=== PATIENT | female | born 1965 | race Caucasian/White ===

== ENCOUNTER 2018-01-06 03:55 | Inpatient (IN) ==
[2018-01-06] MEDS ORDERED: 0.9 % Sodium Chloride 1,000 ML IVC ONE (04:25)
[2018-01-06] MEDS ORDERED: Isovue-370 500 ML INFUS..BTL IV ONE (04:25)
--- NOTE | 2018-01-06 04:29 | Emergency Department Note ---
Disposition Clinical Impression: Hypokalemia, Hx of Crohn's disease Leukocytosis Qualifiers: Leukocytosis type: unspecified Qualified Code(s): D72.829 - Elevated white blood cell count, unspecified Nausea and vomiting Qualifiers: Vomiting type: unspecified Vomiting Intractability: non-intractable Qualified Code(s): R11.2 - Nausea with vomiting, unspecified Disposition: Admitted As Inpatient Condition: Fair Time of Disposition: 06:31 General Adult HPI - General Chief complaint: ED Abdominal Pain Stated complaint: Fever, abdominal pain, n/v/d Time Seen by Provider: 01/06/18 04:06 Source: patient Mode of arrival: ambulatory Limitations: no limitations Nursing Notes Reviewed: Yes Vital Signs Reviewed: Yes - History of Present Illness HPI Narrative: Patient is a 52-year-old female that presents the emergency department for cough fever congestion and abdominal pain. Patient states that she has a history of Crohn's and is had abdominal pain for the past 5-6 days. She states that she was seen as an outpatient by her primary care provider and was told that she should go to the emergency department. States that she went and was seen at [facility] approximately 5 days ago and nothing was able to be found. She states that things have been progressively been getting worse. Patient states that she has been having episodes of vomiting, fever as high as 103 and diarrhea. Patient also states that she has had generalized body aches. Pain Scale: 8 - Related Data Allergies Allergy/AdvReac Type Severity Reaction Status Date / Time acetaminophen [From Percocet] Allergy See Verified 01/06/18 03:56 Comments infliximab [From Remicade] Allergy See Verified 01/06/18 03:56 Comments Oxycodone [From Percocet] Allergy See Verified 01/06/18 03:56 Comments All systems ED: reviewed and negative except as stated. Constitutional: Reports: fever, chills, weakness Cardiovascular: Denies: chest pain Respiratory: Reports: cough, dyspnea Gastrointestinal: Reports: abdominal pain, nausea, vomiting Genitourinary: Denies: urgency, dysuria, frequency Neurological: Denies: weakness, numbness, paresthesias Past Medical History - Past Medical History Medical history: Reports: hypertension Psychiatric history: Reports: no psych history - Social History Smoking Status: Current every day smoker Smokeless Tobacco Status: No Alcohol use: Reports: none Drug use: Reports: none Physical Exam - General Limitations: no limitations General appearance: alert, in no apparent distress - Head Head exam: atraumatic, normocephalic - Eye Eye exam: Present: normal appearance, EOMI - Neck Neck exam: Present: normal inspection, full ROM, trachea midline - Respiratory Respiratory exam: Present: normal lung sounds bilaterally. Absent: respiratory distress, wheezes - Cardiovascular Cardiovascular exam: Present: regular rate, normal rhythm, normal heart sounds, +S1, +S2 - Abdominal Exam Abdominal exam: Present: soft, tenderness, normal bowel sounds Abdominal tenderness: Present: epigastrium - Neurological Exam Neurological exam: Present: alert, oriented X3 - Psychiatric Psychiatric exam: Present: normal affect, normal mood - Skin Skin exam: Present: warm, dry, intact Course Vital Signs Temperature 98.4 F 01/06/18 03:57 Pulse Rate 103 01/06/18 03:57 Respiratory Rate 20 01/06/18 03:57 Blood Pressure 132/70 01/06/18 03:57 O2 Sat by Pulse Oximetry 94 01/06/18 03:57 Temperature 98.4 F 01/06/18 03:57 Pulse Rate 103 01/06/18 03:57 Respiratory Rate 20 01/06/18 03:57 Blood Pressure 132/70 01/06/18 03:57 O2 Sat by Pulse Oximetry 94 01/06/18 03:57 Oxygen Delivery Oxygen Delivery Room Air Medical Decision Making - [facility] Narrative Medical decision making narrative: Due to the patient presenting to the emergency department with abdominal pain and cough we will obtain basic laboratory tests include CBC, BMP, hepatic panel , lipase, urinalysis and a CT scan of the abdomen and pelvis with IV contrast and a chest x-ray. Patient will also be given a liter of IV fluids here in the emergency department. Chest x-ray showed no acute cardial ulnar process. CT scan did not show any acute findings. Patient did have a hypokalemia of 2.6. Due to the patient vomiting we will not give any oral potassium but we will give 40 of IV potassium. Patient has an elevated white count of 18.4. The remainder laboratory testing was relatively unremarkable. Due to the patient having a hypokalemia, nausea vomiting and diarrhea feel that it is necessary for the patient be admitted to the hospital for further evaluation and management. Called and spoke with the and admitting hospitalist Dr Koroma and he has accepted the patient to their service. The patient will be admitted to the hospital at this time for further evaluation and management. - Lab Data Lab results reviewed: Yes I reviewed the patient's lab results. - Radiology Data Radiology results reviewed: Yes I reviewed the patient's radiology results. Abdomen/Pelvis CT 01/06/18 04:25 IMPRESSION: No acute process identified. D/ / Tomy Walter MD / Tomy Walter MD Interpreting Provider: Tomy Walter MD Chest X-Ray 01/06/18 04:31 IMPRESSION: No acute cardiopulmonary abnormality. D/ / Willie Benz MD / Willie Benz MD Interpreting Provider: Willie Benz MD - EKG Data EKG #1 EKG attestation: Yes I reviewed and interpreted this EKG. EKG results narrative: EKG shows a sinus rhythm at a rate of 83 bpm, MI interval of 171, QRS duration of 93, QTC of 405 with a normal axis. There is no STEMI noted on EKG.
[2018-01-06] MEDS ORDERED: Ondansetron 4 MG/2 ML VIAL IVP ONE (04:32)
[2018-01-06 04:59] LABS: Basophils # 0.1 K/mcL (0.0-0.2); Basophils % 0.6 %; Eosinophils # 0.1 K/mcL (0.0-0.6); Eosinophils % 0.3 %; Hemoglobin 12.4 g/dL (11.5-15.4); Immature Granulocytes % 0.7 % (0-4); Lymphocytes # 1.8 K/mcL (0.6-4.6); Lymphocytes % 9.7 %; Mean Corpuscular HGB Conc 36.5 g/dL (31.6-35.5); Mean Corpuscular Hemoglobin 31.6 pg (28.0-33.3); Mean Corpuscular Volume 86.7 fL (83.0-100.0); Mean Platelet Volume 9.5 fL (9.4-12.4); Monocytes # 1.3 K/mcL (0.0-1.3); Monocytes % 7.1 %; Nucleated Red Blood Cells 0.1 /100 WBC (0); Platelet Count 283 K/mcL (140-400); Red Blood Count 3.92 M/mcL (3.82-4.97); Red Cell Distribution Width 11.8 % (11.5-14.5); Segmented Neutrophils % 81.6 %
[2018-01-06 05:30] LABS: Alanine Aminotransferase 33 Units/L (7-52); Albumin/Globulin Ratio 1.2 (1.1-2.2); Alkaline Phosphatase 190 Units/L (34-104); Aspartate Amino Transferase 27 Units/L (13-39); BUN/Creatinine Ratio 12 (6-26); Bilirubin,Direct 0.1 mg/dL (0.0-0.2); Bilirubin,Indirect 0.5 mg/dL (0.0-1.2); Bilirubin,Total 0.6 mg/dL (0.3-1.0); Blood Urea Nitrogen 10 mg/dL (6-20); Calcium 9.3 mg/dL (8.6-10.3); Carbon Dioxide 26 mEq/L (23-29); Chloride 95 mEq/L (98-107); Globulin 3.3 g/dL (2.4-3.5); Glucose 136 mg/dL (70-105); Lipase 15 Units/L (11-82); Osmolality,Calculated 275 (280-300); Potassium 2.6 mEq/L (3.5-5.1); Sodium 132 mEq/L (136-145); Total Protein 7.3 g/dL (6.4-8.9); eGFR For African Americans > 60 (> 60); eGFR For Non-African Americans > 60 (> 60)
[2018-01-06] MEDS ORDERED: *HR* FentaNYL (PF) 100 MCG/2 ML VIAL IVP ONE (05:58)
[2018-01-06] MEDS ORDERED: *HR* Promethazine 25 MG/ML VIAL IVP ONE (06:19)
[2018-01-06 06:25] LABS: Bilirubin,Urine Negative (Negative); Blood,Urine Small (Negative); Clarity,Urine Clear (Clear); Color,Urine Yellow (Yellow); Glucose,Urine (UA) Normal (Normal); Ketones,Urine Negative (Negative); Leukocyte Esterase,Urine Negative (Negative); Nitrite,Urine Negative (Negative); PH,Urine 6.5 pH Units (5.0-8.0); Protein,Urine Negative (Neg-Trace); Specific Gravity,Urine 1.015 (1.010-1.025); Urobilinogen,Urine Normal (Normal)
[2018-01-06 06:26] LABS: Bacteria,Urine None Seen per hpf (None-Few); Hyaline Casts,Urine None Seen per lpf (None-Few); Squamous Epithelial Cell,Urine Many per lpf (None-Few); WBC,Urine 0-3 per hpf (0-3)
--- NOTE | 2018-01-06 07:20 | Emergency Department Note ---
Disposition Clinical Impression: Hypokalemia, Hx of Crohn's disease Leukocytosis Qualifiers: Leukocytosis type: unspecified Qualified Code(s): D72.829 - Elevated white blood cell count, unspecified Nausea and vomiting Qualifiers: Vomiting type: unspecified Vomiting Intractability: non-intractable Qualified Code(s): R11.2 - Nausea with vomiting, unspecified Disposition: Admitted As Inpatient Condition: Fair General Adult HPI - General Chief complaint: ED Abdominal Pain Stated complaint: Fever, abdominal pain, n/v/d Time Seen by Provider: 01/06/18 04:06 Source: patient Mode of arrival: ambulatory Limitations: no limitations Nursing Notes Reviewed: Yes Vital Signs Reviewed: Yes - History of Present Illness Pain Scale: 8 - Related Data Allergies Allergy/AdvReac Type Severity Reaction Status Date / Time acetaminophen [From Percocet] Allergy See Verified 01/06/18 03:56 Comments infliximab [From Remicade] Allergy See Verified 01/06/18 03:56 Comments Oxycodone [From Percocet] Allergy See Verified 01/06/18 03:56 Comments Constitutional: Reports: fever, chills, weakness Cardiovascular: Denies: chest pain Respiratory: Reports: cough, dyspnea Gastrointestinal: Reports: abdominal pain, nausea, vomiting Genitourinary: Denies: urgency, dysuria, frequency Neurological: Denies: weakness, numbness, paresthesias Past Medical History - Past Medical History Medical history: Reports: hypertension Psychiatric history: Reports: no psych history - Social History Smoking Status: Current every day smoker Smokeless Tobacco Status: No Alcohol use: Reports: none Drug use: Reports: none Physical Exam - General Limitations: no limitations General appearance: alert, in no apparent distress Course Vital Signs Temperature 98.4 F 01/06/18 03:57 Pulse Rate 103 01/06/18 03:57 Respiratory Rate 20 01/06/18 03:57 Blood Pressure 132/70 01/06/18 03:57 O2 Sat by Pulse Oximetry 94 01/06/18 03:57 Temperature 98.4 F 01/06/18 03:57 Pulse Rate 103 01/06/18 03:57 Respiratory Rate 20 01/06/18 03:57 Blood Pressure 132/70 01/06/18 03:57 O2 Sat by Pulse Oximetry 94 01/06/18 03:57 Oxygen Delivery Oxygen Delivery Room Air Medical Decision Making - Lab Data Result diagrams: 01/06/18 04:52 01/06/18 04:52 Lab Results 01/06/18 01/06/18 01/06/18 Range/Units 04:52 04:52 05:34 WBC 18.4 H (4.3-11.1) K/mcL RBC 3.92 (3.82-4.97) M/mcL Hgb 12.4 (11.5-15.4) g/dL Hct 34.0 L (35.3-44.9) % MCV 86.7 (83.0-100.0) fL MCH 31.6 (28.0-33.3) pg MCHC 36.5 H (31.6-35.5) g/dL RDW 11.8 (11.5-14.5) % Plt Count 283 (140-400) K/mcL MPV 9.5 (9.4-12.4) fL Immature Gran % 0.7 (0-4) % Seg Neutrophils % 81.6 % Lymphocytes % 9.7 % Monocytes % 7.1 % Eosinophils % 0.3 % Basophils % 0.6 % Neutrophils # 15.0 H (1.6-8.9) K/mcL Lymphocytes # 1.8 (0.6-4.6) K/mcL Monocytes # 1.3 (0.0-1.3) K/mcL Eosinophils # 0.1 (0.0-0.6) K/mcL Basophils # 0.1 (0.0-0.2) K/mcL Nucleated RBCs/100 WBC 0.1 H (0) /100 WBC Sodium 132 L (136-145) mEq/L Potassium 2.6 L (3.5-5.1) mEq/L Chloride 95 L (98-107) mEq/L Carbon Dioxide 26 (23-29) mEq/L BUN 10 (6-20) mg/dL Creatinine 0.86 (0.60-1.20) mg/dL Est GFR ( Amer) > 60 (> 60) Est GFR (Non-Af Amer) > 60 (> 60) BUN/Creatinine Ratio 12 (6-26) Glucose 136 H (70-105) mg/dL Calculated Osmolality 275 L (280-300) Calcium 9.3 (8.6-10.3) mg/dL Total Bilirubin 0.6 (0.3-1.0) mg/dL Direct Bilirubin 0.1 (0.0-0.2) mg/dL Indirect Bilirubin 0.5 (0.0-1.2) mg/dL AST 27 (13-39) Units/L ALT 33 (7-52) Units/L Alkaline Phosphatase 190 H (34-104) Units/L Serum Total Protein 7.3 (6.4-8.9) g/dL Albumin 4.0 (3.5-5.7) g/dL Globulin 3.3 (2.4-3.5) g/dL Albumin/Globulin Ratio 1.2 (1.1-2.2) Lipase 15 (11-82) Units/L Urine Color TNP Urine Clarity TNP Urine pH TNP Ur Specific [place] TNP Urine Protein TNP Urine Glucose (UA) TNP Urine Ketones TNP Urine Blood TNP Urine Nitrite TNP Urine Bilirubin TNP Urine Urobilinogen TNP Ur Leukocyte Esterase TNP Urine Microscopic RBC TNP Urine Microscopic WBC TNP Ur Squamous Epith Cells TNP Urine Bacteria TNP Hyaline Casts TNP Ur Culture Indicated? TNP Specimen Rejected 01/06/18 01/06/18 Range/Units 05:34 06:09 WBC (4.3-11.1) K/mcL RBC (3.82-4.97) M/mcL Hgb (11.5-15.4) g/dL Hct (35.3-44.9) % MCV (83.0-100.0) fL MCH (28.0-33.3) pg MCHC (31.6-35.5) g/dL RDW (11.5-14.5) % Plt Count (140-400) K/mcL MPV (9.4-12.4) fL Immature Gran % (0-4) % Seg Neutrophils % % Lymphocytes % % Monocytes % % Eosinophils % % Basophils % % Neutrophils # (1.6-8.9) K/mcL Lymphocytes # (0.6-4.6) K/mcL Monocytes # (0.0-1.3) K/mcL Eosinophils # (0.0-0.6) K/mcL Basophils # (0.0-0.2) K/mcL Nucleated RBCs/100 WBC (0) /100 WBC Sodium (136-145) mEq/L Potassium (3.5-5.1) mEq/L Chloride (98-107) mEq/L Carbon Dioxide (23-29) mEq/L BUN (6-20) mg/dL Creatinine (0.60-1.20) mg/dL Est GFR ( Amer) (> 60) Est GFR (Non-Af Amer) (> 60) BUN/Creatinine Ratio (6-26) Glucose (70-105) mg/dL Calculated Osmolality (280-300) Calcium (8.6-10.3) mg/dL Total Bilirubin (0.3-1.0) mg/dL Direct Bilirubin (0.0-0.2) mg/dL Indirect Bilirubin (0.0-1.2) mg/dL AST (13-39) Units/L ALT (7-52) Units/L Alkaline Phosphatase (34-104) Units/L Serum Total Protein (6.4-8.9) g/dL Albumin (3.5-5.7) g/dL Globulin (2.4-3.5) g/dL Albumin/Globulin Ratio (1.1-2.2) Lipase (11-82) Units/L Urine Color Yellow Urine Clarity Clear Urine pH 6.5 Ur Specific [place] 1.015 Urine Protein Negative Urine Glucose (UA) Normal Urine Ketones Negative Urine Blood Small H Urine Nitrite Negative Urine Bilirubin Negative Urine Urobilinogen Normal Ur Leukocyte Esterase Negative Urine Microscopic RBC 5-15 H Urine Microscopic WBC 0-3 Ur Squamous Epith Cells Many H Urine Bacteria None Seen Hyaline Casts None Seen Ur Culture Indicated? NO Specimen Rejected Labelling Attestation Statement - Attestation Attestation: I, Tc Carlisle MD, personally evaluated this patient and discussed their management with the resident physician. I reviewed the resident's note and agree with the documented findings, medical decision making, and plan of care. 52-year-old female with history of Crohn's disease presents to the emergency department with a complaint of being ill for the past 5 or 6 days. She complains of sinus congestion and drainage with sore throat and cough. She also complains of nausea and vomiting and diarrhea. Crampy generalized abdominal pain. No melena, hematemesis, or hematochezia. There has been fever and chills and body aches. No urinary symptoms. On examination patient is a well-developed well-nourished female in no acute distress. She is alert and oriented 3. There is no cyanosis or diaphoresis. Breath sounds are clear and equal bilaterally. Heart regular rate and rhythm. Abdomen is soft with mild to moderate diffuse tenderness on direct palpation. Normal bowel sounds. No guarding or rebound tenderness. Labs reviewed. WBC 18.4 with 81.6% segs. Potassium 2.6. Chest x-ray negative. CT the abdomen and pelvis negative. EKG shows a normal sinus rhythm with ventricular rate of 83. Nonspecific ST and T-wave changes. No ectopy or arrhythmia. The hospitalist, Dr. Koroma, was consulted and accepted admission of the patient.
--- NOTE | 2018-01-06 07:50 | Internal Med History&Physical ---
Date of Encounter: 01/06/18 Time of Encounter: 07:50 Internal Medicine - H&P: HPI Admitted From: Home Plans for Post Hospital Care: Home History of present illness: Ms. Feldman is a 52 year old female who has history of Crohn's disease, hypertension presenting emergency room for 5 days of fever cough headache abdominal pain. Patient stated that she started to have fever chills headache and a sore throat 5 days ago, then noses become congested, has some productive cough and chest congestion. Denies chest pain he she had a fever at home but emergency room her temperature was normal. Also she has a history of Crohn's disease She also has abdominal pain at the same time, abdominal pain is diffuse, 9 out of 10 on and off , cramping is associated with severe diarrhea nausea and vomiting. The diarrhea is from 10-30 times a day no bloody stools. She feels very dehydrated and is concerning for Crohn's disease flareup. In the emergency room WBC 18.4 potassium 2.6 x-ray and chest x-ray was negative CT abdominal and a pelvis are negative, EKG shows normal sinus rhythm. Patient is going to be admitted for viral syndrome and viral gastroenteritis supportive care IV hydration Past Med Surg Social Fam HX - Past Medical History Medical history: hypertension Psychiatric history: no psych history - Social History Smoking Status: Current every day smoker Smokeless Tobacco Status: No Alcohol use: none Drug use: none Internal Medicine - H&P: Meds 3 Allergy/AdvReac Type Severity Reaction Status Date / Time acetaminophen [From Percocet] Allergy See Verified 01/06/18 03:56 Comments infliximab [From Remicade] Allergy See Verified 01/06/18 03:56 Comments Oxycodone [From Percocet] Allergy See Verified 01/06/18 03:56 Comments All Systems PM: A 10-system review of systems was performed and is negative for pertinent findings except as documented above in the HPI. - Constitutional Vitals: Temp Pulse Resp BP Pulse Ox 98.4 F 103 16 118/77 94 01/06/18 03:57 01/06/18 03:57 01/06/18 07:32 01/06/18 07:32 01/06/18 03:57 General appearance: Present: A&O X 3, pleasant, obese, answers questions appropriately Exam: CONSTITUTIONAL: Patient appears as an age appropriate female well developed, in no acute distress. EYES Clear sclerae, bilateral pupils are equal, reactive to light and accommodation. Extraocular movements are intact RESPIRATORY: No accessory muscle use, bilateral clear to auscultation, no wheezing, no crackles/rales. CARDIOVASCULAR: Regular heart rate, normal S1 and S2, no murmurs GASTROINTESTINAL: bowel sounds present, soft, no tenderness. No hepatosplenomegaly. No bilateral CVA tenderness MUSCULOSKELETAL: Joints in normal range of motion, no clubbing, no edema, no cyanosis. Bilateral peripheral pulses 2+ LYMPHATIC no lymphadenopathy in neck, groin and axilla bilaterally, no thyromegaly. NEUROLOGIC: CN II to XII are grossly intact, no focal neurological deficit. Deep tendon reflexes 2+ bilaterally. Normal light touch sensation to upper and lower extremity PSYCHIATRIC: Oriented x3, with good insight, mood is euthymic. No hallucinations or delusions. SKIN: Skin warm and dry, no rashes, no open wound. Internal Med - H&P Results - Labs CBC & Chem 7: 01/06/18 04:52 01/06/18 04:52 - Assessment and plan (1) Upper respiratory infection, viral Current Visit: Yes Status: Acute Assessment and plan: Patient has upper respiratory infection for 5 days, chest x-ray is negative for pneumonia. We will give Flonase supportive care (2) Leukocytosis Current Visit: Yes Status: Acute Assessment and plan: Negative UA and the chest x-ray, will follow-up with WBC Qualifiers: Leukocytosis type: unspecified Qualified Code(s): D72.829 - Elevated white blood cell count, unspecified (3) Nausea and vomiting Current Visit: Yes Status: Acute Assessment and plan: Possible acute viral gastroenteritis, will give Zofran and IV Phenergan IV Qualifiers: Vomiting type: unspecified Vomiting Intractability: non-intractable Qualified Code(s): R11.2 - Nausea with vomiting, unspecified (4) Hypokalemia Current Visit: Yes Status: Acute Assessment and plan: Place of IV and oral (5) Hx of Crohn's disease Current Visit: Yes Status: Acute Assessment and plan: History of Crohn's disease, was not on treatment, CT abdominal and the pelvis shows no acute process Patient has severe diarrhea will check stool C. difficile and a culture (6) Dehydration Current Visit: Yes Status: Acute Assessment and plan: will give IVF (7) Tobacco abuse Current Visit: Yes Status: Acute Assessment and plan: Patient is smokes a pack a day, smoking cessation discussed. We will provide a nicotine patch - Time Spent With Patient Total time spent is greater than 50% in coordination of care (as documented) at patient's floor/unit and/or counseling patient: Greater than 35 minutes
[2018-01-06] MEDS ORDERED: Naloxone 0.4 MG/ML INJ IVP PRN (08:09)
[2018-01-06] MEDS ORDERED: Acetaminophen 325 MG TABLET PO PRN (08:09)
[2018-01-06] MEDS ORDERED: Ondansetron 4 MG/2 ML VIAL IVP PRN (08:17)
[2018-01-06] MEDS: *HR* OxyCODONE Immed Rel 5 MG TABLET PO PRN ×2 (08:36→20:17)
[2018-01-06] MEDS: Ringers Solution, Lactated 1,000 ML IVC SCH ×2 (08:36→23:32)
[2018-01-06] MEDS: Fluticasone Propionate Nasal 50 MCG/SPRAY BOTTLE NS SCH (11:41)
[2018-01-06] MEDS: Nicotine 21 MG PATCH.TD24 TD SCH (11:41)
[2018-01-06] MEDS: Vancomycin Oral Soln 125 MG/2.5 ML UDC PO SCH ×2 (15:39→21:57)
[2018-01-06] MEDS ORDERED: GuaiFENesin/Dextromethorphan TABLET PO PRN (20:34)
[2018-01-07] MEDS ORDERED: GuaiFENesin/Codeine Oral Soln 5 ML UDC PO PRN (04:57)
[2018-01-07] MEDS ORDERED: Menthol 9.1 MG LOZENGE PO PRN (05:01)
[2018-01-07] MEDS ORDERED: *HR* LORazepam 2 MG/ML VIAL IVP ONE (05:26)
[2018-01-07] MEDS: GuaiFENesin/Dextromethorphan TABLET PO PRN (05:51)
[2018-01-07] MEDS: *HR* OxyCODONE Immed Rel 5 MG TABLET PO PRN ×2 (05:51→21:43)
[2018-01-07 06:03] LABS: Hematocrit 31.2 % (35.3-44.9); Mean Corpuscular HGB Conc 34.3 g/dL (31.6-35.5); Mean Corpuscular Hemoglobin 30.2 pg (28.0-33.3); Mean Corpuscular Volume 88.1 fL (83.0-100.0); Mean Platelet Volume 9.5 fL (9.4-12.4); Platelet Count 249 K/mcL (140-400); Red Blood Count 3.54 M/mcL (3.82-4.97); Red Cell Distribution Width 11.8 % (11.5-14.5)
[2018-01-07 06:05] LABS: Hemoglobin 10.7 g/dL (11.5-15.4)
[2018-01-07 06:25] LABS: BUN/Creatinine Ratio 10 (6-26); Blood Urea Nitrogen 7 mg/dL (6-20); Carbon Dioxide 23 mEq/L (23-29); Chloride 102 mEq/L (98-107); Glucose 125 mg/dL (70-105); Osmolality,Calculated 279 (280-300); Potassium 2.8 mEq/L (3.5-5.1); Sodium 135 mEq/L (136-145); eGFR For African Americans > 60 (> 60); eGFR For Non-African Americans > 60 (> 60)
[2018-01-07] MEDS ORDERED: Potassium Chloride 20 MEQ, Lidocaine 1% 2 ML in D5% in Water 250 ML IVPB ONE (08:09)
--- NOTE | 2018-01-07 08:11 | Internal Med Progress Note ---
<Eloy Sparrow - Last Filed: 01/07/18 10:56> Date of Encounter: 01/07/18 Time of Encounter: 08:11 - Assessment and plan (1) C. difficile colitis Current Visit: Yes Status: Acute Assessment and plan: Diarrhea improved overnight after starting antibiotics. Stool C.diff Tox B positive. Pending Stool culture Reviewed CT abd/pelvis and mild inflammation noted in colon. Continue with Vancomycin oral d2. -IV fluids 100mL/hr with potassium (2) Hypokalemia Current Visit: Yes Status: Acute Assessment and plan: Potassium 2.6 on arrival Currently 2.8 after completing 20mEq rider and 40mEq oral. Likely secondary to severe dehydration and diarrhea. Replace with 20mEq rider and additional 40mEq oral bid. Will continue to monitor labs. (3) Epigastric abdominal pain Current Visit: Yes Status: Acute Assessment and plan: Continues to have epigastric abdominal pain on exam; though not reported initially by patient. Discussed about heartburn/gerd symptoms, patient reports symptoms. -Start protonix. Continue monitoring abdominal exam. (4) Dehydration Current Visit: Yes Status: Acute Assessment and plan: Vitals stable, nontachycardic. No nausea or vomiting. Encourage oral hydration. (5) Upper respiratory infection, viral Current Visit: Yes Status: Acute Assessment and plan: Presents with nasal congestion and chest congestion. Tenderness over sinuses Likely viral etiology Continue with supportive care. Monitor vitals. Has been afebrile since arrival, though reported fevers up to 103F before arrival. -CT sinus ordered (6) Hx of Crohn's disease Current Visit: Yes Status: Acute Assessment and plan: Reported history of Crohns not on treatment. CT abd/pelvis revealed no acute process, but reviewed and looks like some colitis. Severe nonbloody diarrhea on arrival likely related to C.diff diarrhea without colitis, see plan in assessment above. Hb drop from 12.4 to 10.7 this morning. Most likely related to fluids; hemodilution vs secondary to c.diff colitis. Continue monitoring CBC. (7) Hypomagnesemia Current Visit: Yes Status: Acute Assessment and plan: Magnesium 1.4 Replete as needed. (8) Tobacco abuse Current Visit: Yes Status: Acute Assessment and plan: Continue with Nicotine replacement patch. (9) Sepsis Current Visit: Yes Status: Resolved Assessment and plan: Fevers to 103F prior to arrival otherwise afebrile since arrival, leukocytosis 18.4 on arrival, Tachycardic up to 111bpm, and C.diff colitis. -Continue per plan in assessment above -Vancomycin oral d2. Qualifiers: Sepsis type: sepsis due to unspecified organism Qualified Code(s): A41.9 - Sepsis, unspecified organism - Time Spent With Patient Total time spent is greater than 50% in coordination of care (as documented) at patient's floor/unit and/or counseling patient: - Subjective Interval history: Patient reports she still has nasal and chest congestion and hoarse voice, coughing up white mucus at times. Reports abdominal pain resolved and currently not having any diarrhea after starting antibiotics last evening; however on exam has mild epigastric tenderness with palpation. Patient denies fevers, chills, sweats, changes in vision, neck pain, chest pain, palpitations, shortness of breath, changes in bladder, dysuria, weakness, or loss of sensation. - Constitutional Vitals: Temp Pulse Resp BP Pulse Ox 99.2 F 90 15 152/63 92 01/07/18 06:35 01/07/18 06:35 01/07/18 06:35 01/07/18 06:35 01/07/18 06:35 General appearance: Present: A&O X 3, pleasant, no acute distress, obese, answers questions appropriately - Head Head exam: Present: atraumatic, normal inspection, normocephalic - Eye Eye exam: Present: EOMI, normal appearance - ENT ENT exam: Present: mucous membranes moist, normal exam, normal oropharynx - Neck Neck exam general surgery: Present: full ROM, normal inspection, supple, trachea midline. Absent: lymphadenopathy - Respiratory Respiratory exam: Present: CTAB. Absent: rales, respiratory distress, rhonchi, wheezes - Cardiovascular Cardiovascular exam: Present: RRR, +S1, +S2 - GI/Abdominal GI/Abdominal exam: Present: normal bowel sounds, soft, tenderness (mild epigastric). Absent: distended, no peritoneal signs - Extremities Exam Extremities exam: Present: full ROM, normal inspection, warm, radial pulses palpable and symmetrical. Absent: pedal edema, tenderness - Skin Skin exam: Present: dry, intact, normal color, warm Internal Medicine: Result - Labs CBC & Chem 7: 01/07/18 05:28 01/07/18 05:28 Labs: Short CBC 01/07/18 Range/Units 05:28 WBC 17.3 H (4.3-11.1) K/mcL Hgb 10.7 L D (11.5-15.4) g/dL Hct 31.2 L (35.3-44.9) % Plt Count 249 (140-400) K/mcL BMP 01/07/18 05:28 Sodium 135 L Potassium 2.8 L Chloride 102 Carbon Dioxide 23 BUN 7 Creatinine 0.71 Glucose 125 H Calcium 9.0 Consult Discharge Plan - Plan Referrals: Ale Ramsay MD [Primary Care Provider] - <Ankush Bey - Last Filed: 01/07/18 10:59> Date of Encounter: 01/07/18 - Assessment and plan (1) Hypokalemia Current Visit: Yes Status: Acute (2) Hx of Crohn's disease Current Visit: Yes Status: Acute (3) Upper respiratory infection, viral Current Visit: Yes Status: Acute (4) Dehydration Current Visit: Yes Status: Acute (5) Tobacco abuse Current Visit: Yes Status: Acute (6) Epigastric abdominal pain Current Visit: Yes Status: Acute (7) Hypomagnesemia Current Visit: Yes Status: Acute (8) C. difficile colitis Current Visit: Yes Status: Acute (9) Sepsis Current Visit: Yes Status: Resolved Qualifiers: Sepsis type: sepsis due to unspecified organism Qualified Code(s): A41.9 - Sepsis, unspecified organism - Time Spent With Patient Total time spent is greater than 50% in coordination of care (as documented) at patient's floor/unit and/or counseling patient: - Constitutional Vitals: Temp Pulse Resp BP Pulse Ox 99.2 F 90 15 152/63 92 01/07/18 06:35 01/07/18 06:35 01/07/18 06:35 01/07/18 06:35 01/07/18 06:35 Internal Medicine: Result - Labs CBC & Chem 7: 01/07/18 05:28 01/07/18 05:28 Labs: Short CBC 01/07/18 Range/Units 05:28 WBC 17.3 H (4.3-11.1) K/mcL Hgb 10.7 L D (11.5-15.4) g/dL Hct 31.2 L (35.3-44.9) % Plt Count 249 (140-400) K/mcL BMP 01/07/18 05:28 Sodium 135 L Potassium 2.8 L Chloride 102 Carbon Dioxide 23 BUN 7 Creatinine 0.71 Glucose 125 H Calcium 9.0 - Attending Attestation Severe dehydration and sepsis due to C. difficile colitis CT scan of the abdomen is reported as normal bothers mild inflammation in the right ascending colon and the rectal vault The patient has been having more than 30 bowel movements per day, very loose Continue oral vancomycin History of severe sinusitis for about a week next Order CT scan of the sinuses, we will try to avoid antibiotic therapy History of Crohn's not treated due to history of right possible kidney cancer that was removed Has not been on biological agents recently Hypokalemia, replete as needed, continue IV fluids with potassium I examined this patient and my medical decision-making was reviewed with the Resident Physician. I agree with the documented findings, disposition and treatment plan as described except to the extent set forth below.
[2018-01-07] MEDS ORDERED: Pantoprazole 40 MG VIAL IVP SCH (09:00)
[2018-01-07 09:20] LABS: Magnesium 1.4 mg/dL (1.6-2.6)
[2018-01-07] MEDS: Nicotine 21 MG PATCH.TD24 TD SCH (09:28)
[2018-01-07] MEDS: Vancomycin Oral Soln 125 MG/2.5 ML UDC PO SCH ×4 (10:14→21:45)
[2018-01-07] MEDS: Fluticasone Propionate Nasal 50 MCG/SPRAY BOTTLE NS SCH (10:16)
[2018-01-07] MEDS: Magnesium Oxide 400 MG TABLET PO SCH ×2 (13:42→21:43)
[2018-01-07] MEDS: Amoxicillin 500 MG CAPSULE PO SCH ×2 (13:42→21:42)
[2018-01-07] MEDS: *HR* Promethazine 25 MG/ML VIAL IVP PRN (21:33)
[2018-01-07] MEDS: Famotidine 20 MG TABLET PO SCH (21:42)
[2018-01-08] MEDS: *HR* Promethazine 25 MG/ML VIAL IVP PRN ×2 (02:44→22:23)
[2018-01-08 05:43] LABS: Basophils # 0.1 K/mcL (0.0-0.2); Basophils % 0.6 %; Eosinophils # 0.2 K/mcL (0.0-0.6); Eosinophils % 1.9 %; Hematocrit 31.2 % (35.3-44.9); Hemoglobin 10.7 g/dL (11.5-15.4); Immature Granulocytes % 0.7 % (0-4); Lymphocytes # 2.2 K/mcL (0.6-4.6); Lymphocytes % 17.3 %; Mean Corpuscular HGB Conc 34.3 g/dL (31.6-35.5); Mean Corpuscular Hemoglobin 31.3 pg (28.0-33.3); Mean Corpuscular Volume 91.2 fL (83.0-100.0); Mean Platelet Volume 9.5 fL (9.4-12.4); Monocytes # 0.8 K/mcL (0.0-1.3); Monocytes % 6.1 %; Neutrophils # 9.1 K/mcL (1.6-8.9); Platelet Count 276 K/mcL (140-400); Red Blood Count 3.42 M/mcL (3.82-4.97); Red Cell Distribution Width 11.8 % (11.5-14.5); Segmented Neutrophils % 73.4 %
[2018-01-08 06:04] LABS: BUN/Creatinine Ratio 10 (6-26); Blood Urea Nitrogen 6 mg/dL (6-20); Calcium 8.8 mg/dL (8.6-10.3); Carbon Dioxide 21 mEq/L (23-29); Chloride 109 mEq/L (98-107); Glucose 108 mg/dL (70-105); Magnesium 1.7 mg/dL (1.6-2.6); Osmolality,Calculated 284 (280-300); Phosphorous 2.2 mg/dL (2.7-4.5); Potassium 3.4 mEq/L (3.5-5.1); Sodium 138 mEq/L (136-145); eGFR For African Americans > 60 (> 60); eGFR For Non-African Americans > 60 (> 60)
--- NOTE | 2018-01-08 07:51 | Internal Med Progress Note ---
<Eloy Sprarow - Last Filed: 01/08/18 11:53> Date of Encounter: 01/08/18 Time of Encounter: 07:48 - Assessment and plan (1) C. difficile colitis Current Visit: Yes Status: Acute Assessment and plan: Diarrhea improved overnight after starting antibiotics. Stool C.diff Tox B positive. Pending Stool culture Reviewed CT abd/pelvis and mild inflammation noted in colon. Continue with Vancomycin oral d3. Will need oral vancomycin on discharge, to complete 10 days. -IV fluids 100mL/hr with potassium (2) Sepsis Current Visit: Yes Status: Resolved Assessment and plan: Fevers to 103F prior to arrival otherwise afebrile since arrival, leukocytosis 18.4 on arrival, Tachycardic up to 111bpm, and C.diff colitis and likely bacterial sinusitis. -Continue per plan in assessment above -Vancomycin oral d3. Qualifiers: Sepsis type: sepsis due to unspecified organism Qualified Code(s): A41.9 - Sepsis, unspecified organism (3) Hypokalemia Current Visit: Yes Status: Acute Assessment and plan: Potassium 2.6 on arrival Currently 3.4 after repletion. Likely secondary to severe dehydration and diarrhea. Potassium and magnesium replacement. Will continue to monitor labs. (4) Epigastric abdominal pain Current Visit: Yes Status: Resolved Assessment and plan: Epigastric pain resolved. Likely due to gastritis. Continue with protonix. Continue monitoring abdominal exam. (5) Dehydration Current Visit: Yes Status: Acute Assessment and plan: Vitals stable, nontachycardic. No nausea or vomiting. Encourage oral hydration. Continue with IV fluids. (6) Hx of Crohn's disease Current Visit: Yes Status: Acute Assessment and plan: Hxof Crohns not on treatment because in between clinics due to her solitary kidney. CT abd/pelvis revealed no acute process, but reviewed and looks like some colitis. Severe nonbloody diarrhea on arrival likely related to C.diff diarrhea without colitis, see plan in assessment above. Hb drop from 12.4 to 10.7 yesterday morning. Most likely related to fluids; hemodilution vs secondary to c.diff colitis. Continue monitoring CBC. (7) Hypomagnesemia Current Visit: Yes Status: Resolved Assessment and plan: Magnesium 1.7 Replete as needed. (8) Tobacco abuse Current Visit: Yes Status: Acute Assessment and plan: Continue with Nicotine replacement patch. (9) Nausea and vomiting Current Visit: Yes Status: Acute Assessment and plan: Continues to have intermittent nausea and vomiting. Most likely due to oral medications being administered and poor oral/food intake. May be related to Crohns flare. Patient currently not on therapy because inbetween clinics. -Spread out meds. -Change amoxicillin to IV. -Discontinue oral potassium as meeting goals and has in IV fluids. -Phenergan IM, has IV antinausea medication on board but IV went bad this morning. Qualifiers: Vomiting type: unspecified Vomiting Intractability: non-intractable Qualified Code(s): R11.2 - Nausea with vomiting, unspecified (10) Maxillary sinusitis, acute Current Visit: Yes Status: Acute Assessment and plan: Patient with URI complaints and sinus tenderness for past week. CT sinuses revealed multifocal paranasal sinus opacification with near complete right maxillary sinus opacification and moderate left maxillary sinus opacification, moderate ethmoid opacification, mild mucosal thickening in sphenoid sinus, minimal left mastoid opacification. -Continue Amoxicillin d2. Qualifiers: Recurrence: not specified as recurrent Qualified Code(s): J01.00 - Acute maxillary sinusitis, unspecified - Time Spent With Patient Total time spent is greater than 50% in coordination of care (as documented) at patient's floor/unit and/or counseling patient: - Subjective Interval history: Patient reports she is doing better, no abdominal pain and has had 1 loose to diarrheal bowel movement overnight. Patient reports that she still continues to have nasal congestion and sinus tenderness, but tolerated antibiotic without problems. Epigastric tenderness not present on exam. Patient denies fevers, chills, sweats, changes in vision, neck pain, chest pain, palpitations, shortness of breath, changes in bladder, dysuria, weakness, or loss of sensation. - Constitutional Vitals: Temp Pulse Resp BP Pulse Ox 98.2 F 81 17 159/75 95 01/08/18 06:40 01/08/18 06:40 01/08/18 06:40 01/08/18 06:40 01/08/18 06:40 General appearance: Present: A&O X 3, pleasant, no acute distress, obese, answers questions appropriately - Head Head exam: Present: atraumatic, normal inspection, normocephalic Additional comments: maxillary sinus tenderness to palpation. - Eye Eye exam: Present: EOMI, normal appearance - ENT ENT exam: Present: mucous membranes dry, normal exam, normal oropharynx - Neck Neck exam general surgery: Present: full ROM, normal inspection, supple, trachea midline. Absent: lymphadenopathy - Respiratory Respiratory exam: Present: CTAB. Absent: rales, respiratory distress, rhonchi, wheezes - Cardiovascular Cardiovascular exam: Present: RRR, +S1, +S2 - GI/Abdominal GI/Abdominal exam: Present: normal bowel sounds, soft. Absent: distended, guarding, tenderness - Extremities Exam Extremities exam: Present: full ROM, normal inspection, warm, radial pulses palpable and symmetrical. Absent: pedal edema - Skin Skin exam: Present: dry, intact, normal color, warm. Absent: rash Internal Medicine: Result - Labs CBC & Chem 7: 01/08/18 05:18 01/08/18 05:18 Labs: Short CBC 01/08/18 Range/Units 05:18 WBC 12.4 H (4.3-11.1) K/mcL Hgb 10.7 L (11.5-15.4) g/dL Hct 31.2 L (35.3-44.9) % Plt Count 276 (140-400) K/mcL Neutrophils # 9.1 H (1.6-8.9) K/mcL BMP 01/08/18 05:18 Sodium 138 Potassium 3.4 L Chloride 109 H Carbon Dioxide 21 L BUN 6 Creatinine 0.62 Glucose 108 H Calcium 8.8 - VTE Documentation of Mechanical Device: Graduated compression elastic hosiery Consult Discharge Plan - Plan Referrals: Ale Ramsay MD [Primary Care Provider] - Prescriptions: Vancomycin Oral Soln [Firvanq] 125 mg PO QID 6 Days #24 udc <Mich Crenshaw - Last Filed: 01/08/18 18:12> Date of Encounter: 01/08/18 - Assessment and plan (1) C. difficile colitis Current Visit: Yes Status: Acute (2) Nausea and vomiting Current Visit: Yes Status: Acute Qualifiers: Vomiting type: unspecified Vomiting Intractability: non-intractable Qualified Code(s): R11.2 - Nausea with vomiting, unspecified (3) Maxillary sinusitis, acute Current Visit: Yes Status: Acute Qualifiers: Recurrence: non-recurrent Qualified Code(s): J01.00 - Acute maxillary sinusitis, unspecified (4) Hypokalemia Current Visit: Yes Status: Acute (5) Hx of Crohn's disease Current Visit: Yes Status: Acute (6) Dehydration Current Visit: Yes Status: Resolved (7) Tobacco abuse Current Visit: Yes Status: Chronic (8) Epigastric abdominal pain Current Visit: Yes Status: Resolved (9) Hypomagnesemia Current Visit: Yes Status: Resolved (10) Sepsis Current Visit: Yes Status: Resolved Qualifiers: Sepsis type: sepsis due to unspecified organism Qualified Code(s): A41.9 - Sepsis, unspecified organism - Time Spent With Patient Total time spent is greater than 50% in coordination of care (as documented) at patient's floor/unit and/or counseling patient: - Constitutional Vitals: Temp Pulse Resp BP Pulse Ox 98.2 F 82 15 143/77 98 01/08/18 15:55 01/08/18 15:55 01/08/18 15:55 01/08/18 15:55 01/08/18 15:55 Internal Medicine: Result - Labs CBC & Chem 7: 01/08/18 05:18 01/08/18 05:18 Labs: Short CBC 01/08/18 Range/Units 05:18 WBC 12.4 H (4.3-11.1) K/mcL Hgb 10.7 L (11.5-15.4) g/dL Hct 31.2 L (35.3-44.9) % Plt Count 276 (140-400) K/mcL Neutrophils # 9.1 H (1.6-8.9) K/mcL BMP 01/08/18 05:18 Sodium 138 Potassium 3.4 L Chloride 109 H Carbon Dioxide 21 L BUN 6 Creatinine 0.62 Glucose 108 H Calcium 8.8 - Attending Attestation I examined this patient and my medical decision-making was reviewed with the Resident Physician on 01/08/18. I agree with the documented findings, disposition and treatment plan as described except to the extent set forth below. Ms Feldman is currently admitted for sepsis related to acute C diff as well as maxillary sinusitis. She remains moderate to high risk due to potential for worsening clinical status. Ms Feldman had a lot of nausea and vomiting this morning. No fever or chills. No CP or SOB. Tolerating some diet. Nausea came after a lot of pills. Exam alert. Comfortable at this time. Mucus membranes dry Heart reg No wheeze Abd soft I/P 1. C diff colitis 2. Nausea /vomiting Further diagnoses and plan as above.
[2018-01-08] MEDS: Amoxicillin 500 MG CAPSULE PO SCH ×2 (08:43→22:22)
[2018-01-08] MEDS: Famotidine 20 MG TABLET PO SCH ×2 (08:43→22:22)
[2018-01-08] MEDS: Magnesium Oxide 400 MG TABLET PO SCH ×2 (08:43→22:22)
[2018-01-08] MEDS: Nicotine 21 MG PATCH.TD24 TD SCH (08:44)
[2018-01-08] MEDS: Vancomycin Oral Soln 125 MG/2.5 ML UDC PO SCH ×4 (08:44→22:23)
[2018-01-08] MEDS: Fluticasone Propionate Nasal 50 MCG/SPRAY BOTTLE NS SCH (08:45)
[2018-01-08] MEDS ORDERED: *HR* Promethazine 25 MG/ML VIAL IM ONE (10:04)
[2018-01-08] MEDS ORDERED: *HR* Promethazine 25 MG/ML VIAL ONE (10:07)
[2018-01-08] MEDS: *HR* OxyCODONE Immed Rel 5 MG TABLET PO PRN ×2 (16:51→22:22)
[2018-01-09] MEDS: GuaiFENesin/Dextromethorphan TABLET PO PRN (03:28)
[2018-01-09 06:45] VITALS: BP 144/67
--- NOTE | 2018-01-09 06:45 | Electrocardiograph Report ---
[place] [id number] Test Date: 2018-01-06 Pat Name: Estefania Feldman Department: 103 Room: [id number] Gender: F Livestock Farmworker: : 1965 Requested By: Yadiel Fernando Order Number: [id number] Reading MD: Iban Harrison Measurements Intervals [place] Rate: 83 P: 52 SD: 171 QRS: 44 QRSD: 93 T: 75 QT: 365 QTc: 405 Interpretive Statements SINUS RHYTHM Electronically Signed On 01-09-2018 6:44:30 EDT by Iban Harrison
[2018-01-09] MEDS: Magnesium Oxide 400 MG TABLET PO SCH (08:27)
[2018-01-09] MEDS: Famotidine 20 MG TABLET PO SCH (08:28)
[2018-01-09] MEDS: Amoxicillin 500 MG CAPSULE PO SCH (08:28)
[2018-01-09] MEDS: Vancomycin Oral Soln 125 MG/2.5 ML UDC PO SCH ×2 (08:28→12:04)
[2018-01-09] MEDS: Nicotine 21 MG PATCH.TD24 TD SCH (08:29)
[2018-01-09 08:31] LABS: Basophils # 0.1 K/mcL (0.0-0.2); Basophils % 0.5 %; Eosinophils # 0.3 K/mcL (0.0-0.6); Eosinophils % 2.9 %; Hemoglobin 10.3 g/dL (11.5-15.4); Immature Granulocytes % 0.8 % (0-4); Lymphocytes # 1.6 K/mcL (0.6-4.6); Lymphocytes % 15.1 %; Mean Corpuscular HGB Conc 33.2 g/dL (31.6-35.5); Mean Corpuscular Hemoglobin 29.7 pg (28.0-33.3); Mean Corpuscular Volume 89.3 fL (83.0-100.0); Mean Platelet Volume 9.4 fL (9.4-12.4); Monocytes # 0.6 K/mcL (0.0-1.3); Neutrophils # 7.9 K/mcL (1.6-8.9); Platelet Count 298 K/mcL (140-400); Red Blood Count 3.47 M/mcL (3.82-4.97); Red Cell Distribution Width 11.9 % (11.5-14.5); Segmented Neutrophils % 74.7 %
[2018-01-09] MEDS: Fluticasone Propionate Nasal 50 MCG/SPRAY BOTTLE NS SCH (08:32)
[2018-01-09 08:36] LABS: BUN/Creatinine Ratio 9 (6-26); Blood Urea Nitrogen 7 mg/dL (6-20); Calcium 8.7 mg/dL (8.6-10.3); Carbon Dioxide 22 mEq/L (23-29); Chloride 108 mEq/L (98-107); Glucose 97 mg/dL (70-105); Osmolality,Calculated 284 (280-300); Potassium 3.2 mEq/L (3.5-5.1); Sodium 138 mEq/L (136-145); eGFR For African Americans > 60 (> 60); eGFR For Non-African Americans > 60 (> 60)
--- NOTE | 2018-01-09 11:46 | Discharge Summary ---
<Italo La - Last Filed: 01/09/18 14:54> Orders not resulted at time of discharge: Pending orders 01/10/18 04:00 Magnesium AM 0400 Date of Encounter: 01/09/18 Time of Encounter: 11:43 - Discharge Diagnosis (1) C. difficile colitis Priority: Primary Status: Acute (2) Nausea and vomiting Priority: Secondary Status: Resolved Qualifiers: Vomiting type: unspecified Vomiting Intractability: non-intractable Qualified Code(s): R11.2 - Nausea with vomiting, unspecified (3) Hypokalemia Priority: Secondary Status: Resolved (4) Hx of Crohn's disease Priority: Secondary Status: Chronic (5) Dehydration Priority: Secondary Status: Resolved (6) Tobacco abuse Priority: Secondary Status: Chronic (7) Epigastric abdominal pain Priority: Secondary Status: Resolved (8) Hypomagnesemia Priority: Secondary Status: Resolved (9) Sepsis Priority: Secondary Status: Resolved Qualifiers: Sepsis type: sepsis due to unspecified organism Qualified Code(s): A41.9 - Sepsis, unspecified organism (10) Maxillary sinusitis, acute Priority: Secondary Status: Acute Qualifiers: Recurrence: non-recurrent Qualified Code(s): J01.00 - Acute maxillary sinusitis, unspecified Hospital course: Ms. Feldman is a 52 year old female presented with chief complaint of abdominal pain with fever. reported that she try having fever or chills headache and sore throat 5 days before admission and started becoming congested. She has a history of Crohn's disease. She reported having severe diarrhea with nausea and vomiting and about 10-30 stools daily. She was found to be in sepsis secondary to C. difficile and started on oral vancomycin. CT abdomen pelvis was negative for acute process. Chest x-ray was negative. CT of the nasal sinuses showed multifocal paranasal sinus opacification. Patient was started on amoxicillin for nasosinusitis. She was also given IV fluids and her electrolytes were corrected. Patient's leukocytosis resolved and she was afebrile during her hospital stay. Patient reports normally she has 10 bowel movements a day. In the last 12 hours she has had 6. Her nausea and vomiting is resolved. She is able to ambulate independently. He is tolerating her diet. She was discharged with 6 additional days of oral vancomycin and 5 more days of amoxicillin. - Time Spent with Patient Total time spent providing and/or coordinating discharge services: Greater than 30 minutes - Discharge Medications Prescriptions: Amoxicillin [Amoxil] 500 mg PO BID #10 capsule Magnesium Oxide [Mag-Ox] 400 mg PO BID #30 tablet Vancomycin Oral Soln [Firvanq] 125 mg PO QID 6 Days #24 [facility] [place] Medications: Atorvastatin Calcium [Lipitor] 20 mg PO HS 01/06/18 [History] HYDROcodone/Acet 5/325 mg [[place] 5-325 mg] 1 tab PO QID 01/06/18 [History] Mirtazapine 15 mg PO HS 01/06/18 [History] Quinapril/Hydrochlorothiazide [Quinapril-Hctz 20-12.5 mg Tab] 1 tab PO BID 01/06 [History] Ranitidine HCl [Acid Functional Manager] 150 mg PO BID 01/06/18 [History] Sertraline [Zoloft] 100 mg PO DAILY 01/06/18 [History] amLODIPine [Norvasc] 5 mg PO DAILY 01/06/18 [History] Vancomycin Oral Soln [Firvanq] 125 mg PO QID 6 Days #24 [facility] [place] 01/08/18 [Rx] Amoxicillin [Amoxil] 500 mg PO BID #10 capsule 01/09/18 [Rx] GuaiFENesin/Dextromethorphan [Mucinex Dm] 1 each PO BID PRN tab.er.12h [Rx] Magnesium Oxide [Mag-Ox] 400 mg PO BID #30 tablet 01/09/18 [Rx] Menthol [Cough Drops] 9.1 mg PO Q2H PRN lozenge 01/09/18 [Rx] Allergies/Adverse Reactions: 3 Allergy/AdvReac Type Severity Reaction Status Date / Time acetaminophen [From Percocet] Allergy See Verified 01/06/18 10:57 Comments infliximab [From Remicade] Allergy See Verified 01/06/18 10:57 Comments Oxycodone [From Percocet] Allergy See Verified 01/06/18 10:57 Comments Date of admission: 01/07/18 14:27 Primary care physician: Ale Ramsay MD Discharging clinician: Italo La - Constitutional Vitals: Temp Pulse Resp BP Pulse Ox 98.3 F 73 17 144/67 96 01/09/18 06:44 05/30/18 06:44 01/09/18 06:44 01/09/18 06:44 01/09/18 06:44 General appearance: Present: A&O X 3, pleasant, no acute distress, obese, answers questions appropriately - Other Additional findings: General: plesant without distress HEENT: Head atraumatic, normocephalic, EOMI, PERRL, neck nontender to palpation , absent lymphadenopathy, Moist Mucous Membranes, Heart: Regular rate and rhythm with no murmur Lungs: Clear to auscultation bilaterally Abdomen: Soft nontender, nondistended positive bowel sounds Skin: warm and dry, absent rash Extremities: Absent pedal edema, Neuro: Cranial nerves II through XII intact, UE and LE sensation equal bilaterally, UE and LEstrength 5/5, alert oriented 3, Heel to grossman intact, finger to nose intact, Gait intact, rhombergs sign negative, b/l plantar reflexes downwards Vascular: Pedal and radial pulses 2 out of 4 - Patient Status Disposition: Home, Self-Care Condition: Fair Functional capacity at discharge: independent ambulation Overall status at discharge: patient is progressing back to baseline - Discharge Instructions Instructions: Amoxicillin (By mouth), Vancomycin (By mouth), Magnesium Oxide ( By mouth), Crohn Disease (DC), Crohn Disease (GEN), Sepsis (DC), Clostridium Difficile Infection (DC), Cigarette Smoking and Your Health, Catering Cook ( GEN), Crohn Disease, Catering Cook (GEN) Follow Up With: Ale Ramsay MD [Primary Care Provider] - 01/16/18 11:30 am (dr saucedo is on vacation will see MILLIN[employer] TEACHER) - Diet and Activity Activity: increase activity as tolerated Diet: advance to your usual diet - VTE Documentation of Mechanical Device: Graduated compression elastic hosiery <Mich Crenshaw - Last Filed: 01/09/18 18:53> Date of Encounter: 01/09/18 - Discharge Diagnosis (1) C. difficile colitis Status: Acute (2) Maxillary sinusitis, acute Status: Acute Qualifiers: Recurrence: non-recurrent Qualified Code(s): J01.00 - Acute maxillary sinusitis, unspecified (3) Nausea and vomiting Status: Resolved Qualifiers: Vomiting type: unspecified Vomiting Intractability: non-intractable Qualified Code(s): R11.2 - Nausea with vomiting, unspecified (4) Hypokalemia Status: Resolved (5) Hx of Crohn's disease Status: Chronic (6) Dehydration Status: Resolved (7) Tobacco abuse Status: Chronic (8) Epigastric abdominal pain Status: Resolved (9) Hypomagnesemia Status: Resolved (10) Sepsis Status: Resolved Qualifiers: Sepsis type: sepsis due to unspecified organism Qualified Code(s): A41.9 - Sepsis, unspecified organism Hospital course: Ms. Feldman is a 52 year old female - Time Spent with Patient Total time spent providing and/or coordinating discharge services: 37min Date of admission: 01/07/18 14:27 Primary care physician: Ale Ramsay MD - Constitutional Vitals: Temp Pulse Resp BP Pulse Ox 98.3 F 73 17 144/67 96 01/09/18 06:44 01/09/18 06:44 01/09/18 06:44 01/09/18 06:44 01/09/18 06:44 - Attending Attestation I examined this patient and my medical decision-making was reviewed with the Resident Physician on 01/09/18. I agree with the documented findings, disposition and treatment plan as described except to the extent set forth below. Ms Feldman has been admitted for acute sinusitis and C diff colitis. She is approaching baseline. She is now afebrile and ready for discharge home. Exam alert Comfortable Mucus membranes moist Still with sinus congestion Heart not tachycardic No wheeze Plan D/C home today.
== END 2018-01-09 13:31 | disposition home or self-care (01) | DRG 872 ==
LOC: EMEROO 03:55 → 2NNU 03:55 → 2NENU 06:50 → SUATTDRO 01-07 14:27
PROVIDERS: ADMIT Internal Medicine; ATTEND Internal Medicine